=== PATIENT | female | born 1990 | race Caucasian/White ===

== ENCOUNTER 2017-09-22 11:22 | Emergency (ER) | payer MEDICAID ==
[~2017-09-22] VITALS: Ht 160 cm; Wt 79.4 kg
[2017-09-22 11:32] VITALS: BP 119/70
[2017-09-22] MEDS ORDERED: PROMETHAZINE HCL 25 MG/ML 1ML IM ONE (12:00)
[2017-09-22] MEDS ORDERED: KETOROLAC TROMETH 60MG/2ML VIAL IM ONE (12:00)
== END 2017-09-22 13:30 | disposition home or self-care (01) ==
LOC: ER 11:22
DX: G43.909 Migraine, unspecified, not intractable, without status migrainosus (principal)
CPT/HCPCS: 96372; 99284; J1885; J2550

== ENCOUNTER 2017-10-15 20:04 | Emergency (ER) | payer MEDICAID ==
[~2017-10-15] VITALS: Ht 160 cm; Wt 77.1 kg
[2017-10-15 20:33] VITALS: BP 123/85
[2017-10-15 23:21] LABS: Urine Bacteria FEW /hpf (None Seen); Urine Blood Negative /uL (Negative); Urine Mucus FEW (None Seen); Urine Specific Gravity 1.022 (1.001-1.035); Urine WBC 136 /hpf (0 - 5)
== END 2017-10-15 22:46 | disposition left against medical advice (07) ==
LOC: ER 20:04
DX: G43.909 Migraine, unspecified, not intractable, without status migrainosus (principal); Z53.21 Procedure and treatment not carried out due to patient leaving prior to being seen by health care provider
CPT/HCPCS: 81001

== ENCOUNTER 2017-11-04 07:19 | Emergency (ER) | payer MEDICAID ==
[~2017-11-04] VITALS: Ht 157.5 cm; Wt 76.7 kg
[2017-11-04 08:01] LABS: Basophils # (auto) 0 uL; Basophils % (auto) 0.3 % (0.0-2.0); Eosinophils # (auto) 0.1 uL; Eosinophils % (auto) 1.2 % (0.0-7.0); Hematocrit 42.3 % (36.0-46.0); Hemoglobin 14.2 g/dL (12.2-16.2); Lymphocytes # (auto) 2.1 uL; Lymphocytes % (auto) 20.5 % (10.0-50.0); Mean Corpuscular Hemoglobin 31.2 pg (28.0-32.0); Mean Corpuscular Hgb Conc. 33.6 g/dL (32.0-36.0); Monocytes # (auto) 0.6 uL; Neutrophils # (auto) 7.4 uL; Platelet Count (auto) 297 10^3/uL (140-450); Red Blood Cells 4.55 10^6/uL (4.0-5.20); Red Cell Distribution Width 12.7 % (11.8-14.3); White Blood Cell 10.3 10^3/uL (4.4-10.8)
[2017-11-04 08:16] VITALS: BP 121/69
[2017-11-04 08:17] LABS: Albumin 3.9 g/dL (3.4-5.0); BUN/Creatinine Ratio 10.4; Calcium 9.2 mg/dL (8.5-10.1); Potassium 4.3 mmol/L (3.5-5.1)
[2017-11-04 08:19] LABS: Bilirubin, Total 0.3 mg/dL (0.2-1.0); Total Protein 7.4 g/dL (6.4-8.2)
== END 2017-11-04 09:55 | disposition home or self-care (01) ==
LOC: ER 07:19
DX: O20.0 Threatened abortion (principal); O34.81 Maternal care for other abnormalities of pelvic organs, first trimester; O26.851 Spotting complicating pregnancy, first trimester; Z88.0 Allergy status to penicillin; Z88.8 Allergy status to other drugs, medicaments and biological substances; Z3A.01 Less than 8 weeks gestation of pregnancy
CPT/HCPCS: 36415; 76801; 80053; 84702; 85025